=== PATIENT | male | born 1970 | race Caucasian/White ===

== ENCOUNTER 2017-11-15 04:10 | Emergency (ER) | payer MEDICAID ==
[~2017-11-15] VITALS: Ht 182.9 cm; Wt 77.1 kg
--- NOTE | 2017-11-15 04:30 | NUR ---
DR. LOPEZ AT BEDSIDE FOR MSE.
--- NOTE | 2017-11-15 04:37 | NUR ---
PATIENT IS UNABLE TO PROVIDE URINE SAMPLE AT THIS TIME.
[2017-11-15 05:19] LABS: BASOPHILS % (AUTO) 0.3 % (0.0-2.0); EOSINOPHILS # (AUTO) 0.1 K/uL (0.0-0.7); EOSINOPHILS % (AUTO) 1.5 % (0.0-7.0); HEMATOCRIT 35.7 % (36.7-47.1); HEMOGLOBIN 11.8 g/dL (12.5-16.3); LYMPHOCYTES # (AUTO) 1.8 K/uL (20.0-40.0); LYMPHOCYTES % (AUTO) 49.2 % (20.5-51.5); MEAN CORPUSCULAR HEMOGLOBIN 28.1 uug (23.8-33.4); MEAN CORPUSCULAR HGB CONC 33 g/dL (32.5-36.3); MEAN CORPUSCULAR VOLUME 84.8 fL (73.0-96.2); MONOCYTES # (AUTO) 0.4 K/uL (2.0-10.0); MONOCYTES % (AUTO) 10.2 % (0.0-11.0); NEUTROPHILS # (AUTO) 1.4 K/uL (1.8-8.9); NEUTROPHILS % (AUTO) 38.8 % (38.5-71.5); PLATELET COUNT (AUTO) 262 K/uL (152-348); RED BLOOD CELL COUNT(AUTO) 4.21 MIL/uL (4.06-5.63); WHITE BLOOD COUNT (AUTO) 3.7 K/uL (3.6-10.2)
[2017-11-15 05:23] LABS: CARBON DIOXIDE 31 mmol/L (21-32); CHLORIDE 104 mmol/L (98-107); CREATININE 0.9 mg/dL (0.6-1.3); GLUCOSE 89 mg/dL (74-106); POTASSIUM 3.7 mmol/L (3.5-5.1); UREA NITROGEN, BLOOD 10 mg/dL (7-18)
--- NOTE | 2017-11-15 05:30 | NUR ---
PATIENT IS STILL UNABLE TO PROVIDE URINE SAMPLE, GALASS OF WATER GIVEN. PATIENT STATES WENT TO RESTROOM RIGHT BEFORE COMING INTO ER.
[2017-11-15 05:36] LABS: ALANINE AMINOTRANSFERASE 37 U/L (16-63); ALKALINE PHOSPHATASE 58 U/L (50-136); ASPARTATE AMINOTRANSFERASE 31 U/L (15-37); BILIRUBIN,DIRECT 0.1 mg/dL (0.0-0.2); BILIRUBIN,TOTAL 0.3 mg/dL (0.2-1.0)
[2017-11-15 05:43] LABS: ACETAMINOPHEN < 2.0 ug/mL (10-30)
[2017-11-15 05:57] LABS: ETHANOL < 3 MG/DL (0-0)
--- NOTE | 2017-11-15 06:07 | NUR ---
WATER PROVIDED. HANDED PATIENT URINAL. PATIENT FELL ASLEEP. UNABLE TO OBTAIN URNE SAMPLE.
--- NOTE | 2017-11-15 07:03 | NUR ---
REPORT GIVEN TO ARMOND LEAVITT.
[2017-11-15 07:49] LABS: *BILIRUBIN,URIN NEGATIVE (NEGATIVE); *BLOOD, URINE NEGATIVE (NEGATIVE); *CLARITY,URINE CLEAR (CLEAR); *COLOR,URINE YELLOW (YELLOW); *KETONES,URINE TRACE (NEGATIVE); *PROTEIN,URINE NEGATIVE (NEGATIVE); *UROBILINOGEN,URINE 0.2 E.U./dl (NORMAL); LEUKOCYTE ESTERASE ,URINE NEGATIVE (NEGATIVE); NITRITE, URINE NEGATIVE (NEGATIVE); PH,URINE 6.5 (5.0-8.0); UGLUCOSE NEGATIVE (NEGATIVE)
[2017-11-15 07:57] LABS: BACTERIA,URINE FEW /HPF (NONE SEEN); RBC,URINE 0-3 /HPF (0-3); SQUAMOUS EPITHELIAL CELL,UR FEW /HPF (NONE SEEN); WBC,URINE 0-3 /HPF (0-3)
[2017-11-15 07:58] LABS: MUCUS,URINE FEW /LPF (0-FEW)
--- NOTE | 2017-11-15 08:01 | NUR ---
RADHA AGEE AT BEDSIDE FOR PSYCH EVAL.
--- NOTE | 2017-11-15 08:42 | NUR ---
[facility] TALKED TO [facility] AND FAXED THE REQUESTED INFO.
--- NOTE | 2017-11-15 08:42 | NUR ---
PER RADHA AGEE, [facility] [place] ACCEPTED THE PT. SHOULD BE FOLLOWED UP IN AN HOUR PER RADHA AGEE
[2017-11-15 09:11] LABS: *AMPHETAMINE, URINE POSITIVE (NEGATIVE); *BARBITURATE, URINE NEGATIVE (NEGATIVE); *CANNABINOID, URINE NEGATIVE (NEGATIVE); *COCCAINE, URINE NEGATIVE (NEGATIVE); *OPIATE, URINE NEGATIVE (NEGATIVE); *PHENCYCLIDINE SCREEN,URINE NEGATIVE (NEGATIVE)
--- NOTE | 2017-11-15 10:31 | NUR ---
CALLED BACK [facility] TO FOLLOW UP. PER DR. MURALI FIERRO ACCEPTED THE PT. REPORT NUMBER [id number]
--- NOTE | 2017-11-15 10:32 | NUR ---
ILAN JUARES, ETA 1200. ROUT NUMBER [id number].
--- NOTE | 2017-11-15 10:39 | NUR ---
PT AWAKE, WALKING AROUND WITH STEADY GAIT. NO COMPLAIN, HOSPITAL SANDWICH PROVIDED PER PT REQUEST. FINISHED IT WITH GOOD APPETITE.
--- NOTE | 2017-11-15 12:11 | NUR ---
HOSPITAL LUNCH TRAY PROVIDED. PT FINISHED WITH GOOD APETITE
--- NOTE | 2017-11-15 12:30 | NUR ---
PT REFUSED TO GO TO [facility] AT THIS POINT. SAYS WANTS TO BE D/[facility]. Patient discharged to home in stable conditon. Written and verbal after care instructions given. Patient verbalizes understanding of instructions.PT SAYS HAS A PLACE TO GO. PT DENEIS ANY SI AT THIS POINT. WALKS IN STEADY GAIT, AXOX4. MD AWARE OF PT DECISION Addendum: 11/15/17 at 1330 by ALAN PT NOT DRIVING.
--- NOTE | 2017-11-15 13:00 | NUR ---
CALLED [facility] TO CANCEL THE PT .
[2017-11-15 13:29] VITALS: BP 119/71
== END 2017-11-15 12:30 | disposition home or self-care (01) ==
LOC: ER 04:16
DX: R45.851 Suicidal ideations (principal); F32.9 Major depressive disorder, single episode, unspecified; F15.10 Other stimulant abuse, uncomplicated
CPT/HCPCS: 36415; 80048; 80076; 80307; 81001; 85025; 99284; A4663; G0480 ×2; G0481